=== PATIENT | female | born 1980 | race Caucasian/White ===

== ENCOUNTER 2020-01-18 03:15 | Inpatient (IN) | payer MEDICAID ==
[~2020-01-18] VITALS: Ht 154.9 cm; Wt 77.1 kg
[~2020-01-18 03:15] MED LIST: AMLO2.5T2 MT; FERR-71 MT; HYDR200T80 MT; LABE100T5 MT; MYCO500T MT; PRED1TAB PO; SEVE800T8 MT
[2020-01-18] MEDS ORDERED: KETOROLAC 30MG/ML VIAL IV STA (03:51)
[2020-01-18] MEDS ORDERED: METHOCARBAMOL 750MG TABLET PO SCH (04:00)
[2020-01-18] MEDS ORDERED: MORPHINE SULFATE 2 MG/ML CPJ (NOT FOR IM USE) IV ONE (04:00)
[2020-01-18 04:32] LABS: HEMATOCRIT. 21.3 % (36.0-48.0); HEMOGLOBIN. 7.3 g/dL (12.0-16.0); MEAN CORPUSCULAR HEMOGLOBIN 28.7 pg (28.0-32.0); MEAN CORPUSCULAR VOLUME 84.1 fL (81.0-99.0); MEAN PLATELET VOLUME 6.8 fl (7.4-10.4); PLATELET 395 x1000/uL (130-400); RED BLOOD CELL COUNT 2.53 mill/uL (4.2-5.4); RED CELL DISTRIBUTION WIDTH 16.2 % (11.6-14.6)
[2020-01-18 04:36] LABS: CHLORIDE 99 mEq/L (98-107)
[2020-01-18 05:43] LABS: PLATELET ESTIMATE NORMAL
[2020-01-18] MEDS ORDERED: ASPIRIN 81MG TABLET PO ONE (05:45)
[2020-01-18 07:12] LABS: INR 1.3; PARTIAL THROMBOPLASTIN TIME 38.8 sec (23.4-31.0); PROTHROMBIN TIME 13.1 sec (9.6-11.0)
[2020-01-18] MEDS ORDERED: IPRATROPIUM/ALBUTEROL 0.5-3(2.5)MG/3ML NEB ORI PRN (07:15)
[2020-01-18] MEDS ORDERED: TRAMADOL 50MG TABLET PO PRN (07:15)
[2020-01-18] MEDS ORDERED: MAGNESIUM/ALUMINUM HYDROXIDE/SIMETHICONE 30ML UDC PO PRN (07:15)
[2020-01-18] MEDS ORDERED: ZOLPIDEM TARTRATE 5MG TABLET PO PRN (07:15)
[2020-01-18] MEDS ORDERED: LORAZEPAM 0.5MG TABLET PO PRN (07:15)
[2020-01-18] MEDS ORDERED: CLONIDINE 0.1MG TABLET PO PRN (07:15)
[2020-01-18] MEDS ORDERED: ACETAMINOPHEN 325MG TABLET PO PRN ×2 (07:15)
[2020-01-18] MEDS ORDERED: GUAIFENESIN 200MG/10ML SUGAR FREE UDC PO PRN (07:15)
[2020-01-18] MEDS ORDERED: NITROGLYCERIN 0.4MG TABLET SL SL PRN (07:15)
[2020-01-18] MEDS ORDERED: ENOXAPARIN 40MG/0.4ML SYR SUBCUT SCH (07:15)
[2020-01-18] MEDS ORDERED: DOCUSATE SODIUM 100MG CAPSULE PO PRN (07:15)
[2020-01-18] MEDS ORDERED: DIPHENHYDRAMINE 50MG/ML VIAL IV PRN (07:15)
[2020-01-18] MEDS ORDERED: ONDANSETRON HCL 4MG/2ML INJ IV PRN (07:15)
[2020-01-18] MEDS: AMLODIPINE 10MG TABLET PO SCH (08:26)
[2020-01-18] MEDS: HYDROXYCHLOROQUINE SULFATE 200MG TABLET PO SCH ×2 (08:28→21:13)
[2020-01-18] MEDS: ENOXAPARIN 30MG/0.3ML SYR SUBCUT SCH (08:29)
[2020-01-18] MEDS: METOPROLOL TARTRATE 25MG TABLET PO SCH ×2 (09:00→21:08)
[2020-01-18] MEDS ORDERED: FAMOTIDINE 20MG TABLET PO SCH ×2 (09:00)
[2020-01-18] MEDS: FUROSEMIDE 40MG/4ML VIAL IVP SCH ×2 (14:35→17:55)
[2020-01-18 15:24] LABS: FOLIC ACID (FOLATE) SERUM 5.8 ng/mL (>5.38)
[2020-01-19 00:25] LABS: CREATINE KINASE 233 IU/L (26-192)
[2020-01-19 00:26] LABS: CREATINE KINASE MB FRACTION 7.2 ng/mL (0.5-3.6)
[2020-01-19 05:42] VITALS: BP 145/85
[2020-01-19] MEDS: FUROSEMIDE 40MG/4ML VIAL IVP SCH ×2 (06:16→10:06)
[2020-01-19] MEDS ORDERED: HYDR100T26 PO (07:41)
[2020-01-19 08:00] VITALS: BP 149/93
[2020-01-19] MEDS: ENOXAPARIN 30MG/0.3ML SYR SUBCUT SCH (10:04)
[2020-01-19] MEDS: AMLODIPINE 10MG TABLET PO SCH (10:05)
[2020-01-19] MEDS: METOPROLOL TARTRATE 25MG TABLET PO SCH (10:05)
[2020-01-19] MEDS: HYDROXYCHLOROQUINE SULFATE 200MG TABLET PO SCH (10:05)
[2020-01-19 12:00] VITALS: BP 156/56
[2020-01-19 13:02] LABS: HEPATITIS B SURFACE AB < 3.1 mIU/mL
[2020-01-19 13:11] LABS: HEPATITIS B SURFACE ANTIGEN NEGATIVE
[2020-01-19 13:38] LABS: HEPATITIS A AB IGM NEGATIVE (NEGATIVE)
[2020-01-19 13:48] VITALS: BP 153/80
== END 2020-01-19 14:10 | disposition home or self-care (01) | DRG 133 ==
LOC: ER 03:15 → MICUSO 06:23 → 8WST 01-19 05:37
PROVIDERS: ADMIT Internal Medicine; ATTEND Internal Medicine
DX: J96.00 Acute respiratory failure, unspecified whether with hypoxia or hypercapnia (principal); M32.9 Systemic lupus erythematosus, unspecified; E83.51 Hypocalcemia; E87.1 Hypo-osmolality and hyponatremia; E87.70 Fluid overload, unspecified; I77.6 Arteritis, unspecified; I12.0 Hypertensive chronic kidney disease with stage 5 chronic kidney disease or end stage renal disease; J18.9 Pneumonia, unspecified organism; Z53.20 Procedure and treatment not carried out because of patient's decision for unspecified reasons; N18.6 End stage renal disease; J91.8 Pleural effusion in other conditions classified elsewhere; E44.0 Moderate protein-calorie malnutrition; Z88.0 Allergy status to penicillin; Z79.899 Other long term (current) drug therapy; Z99.2 Dependence on renal dialysis; Z68.32 Body mass index [BMI] 32.0-32.9, adult; M94.0 Chondrocostal junction syndrome [Tietze]
CPT/HCPCS: 36415; 71045; 80053; 80061; 82550; 82553; 82607; 82746; 83036; 83540; 83550; 83880; 84484; 85025; 85651; 86140; 86705; 86706; 86709; 86803; 87340; 93005; 93970; 93971; 99285; J1650; J1885; J1940; J2270